=== PATIENT | female | born 1975 | race Caucasian/White ===

== ENCOUNTER 2017-06-19 18:28 | Emergency (ER) | payer OTHER, MEDICAID ==
[2017-06-19] MEDS ORDERED: DEXAMETHASONE SOD PHOS INJ 10 MG/1 ML VIAL IM ONE (18:48)
[2017-06-19] MEDS ORDERED: KETOROLAC TROMETHAMINE INJ/PF 30 MG/1 ML SDV IM ONE (18:48)
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
[2017-06-19 19:51] VITALS: BP 131/82
== END 2017-06-19 19:51 | disposition home or self-care (01) ==
LOC: ER 18:28
DX: S16.1XXA Strain of muscle, fascia and tendon at neck level, initial encounter (principal); S80.02XA Contusion of left knee, initial encounter; M25.562 Pain in left knee; M54.2 Cervicalgia; R51 Headache; R07.9 Chest pain, unspecified; R10.9 Unspecified abdominal pain; M25.551 Pain in right hip; V49.50XA Passenger injured in collision with unspecified motor vehicles in traffic accident, initial encounter; M54.5 Low back pain; G89.29 Other chronic pain; I10 Essential (primary) hypertension
CPT/HCPCS: 99284; 96372; 73562; J1885; J1100

== ENCOUNTER → 2017-10-15 | Outpatient (CLI) | payer MEDICAID ==
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
== END ==
LOC: OD 14:16
PROVIDERS: ATTEND Nurse Practitioner Family
DX: M54.42 Lumbago with sciatica, left side (principal); M25.561 Pain in right knee
CPT/HCPCS: 72110

== ENCOUNTER → 2017-11-12 | Outpatient (CLI) | payer MEDICAID ==
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
== END ==
LOC: RAD 12:52
PROVIDERS: ATTEND Nurse Practitioner Family
DX: M54.42 Lumbago with sciatica, left side (principal)
CPT/HCPCS: 72148

== ENCOUNTER → 2018-04-06 | Outpatient (CLI) | payer MEDICAID ==
--- NOTE | 2018-04-06 14:36 | RADIOLOGY REPORT (SQ) ---
EXAM DESCRIPTION: L SPINE W/FLEX/EXT COMPLETED DATE/TIME: 04/06/2018 2:25 pm REASON FOR STUDY: LUMBAR RADICULOPATHY (M54.16) M54.16 RADICULOPATHY, LUMBAR REGION COMPARISON: 10/15/2017. NUMBER OF VIEWS: Seven views. TECHNIQUE: AP, lateral, obliques, flexion, extension, and sacral radiographic images acquired. LIMITATIONS: None. FINDINGS: MINERALIZATION: Normal. SEGMENTATION: Normal. No transitional anatomy. ALIGNMENT: Normal. FLEXION/EXTENSION: No instability. VERTEBRAE: Maintained height. No fracture or worrisome bone lesion. DISCS: Mild disc space narrowing with small osteophytes. POSTERIOR ELEMENTS: Pedicles and facets are intact. No pars defect or posterior arch defects. HARDWARE: Posterior hardware unchanged, extending inferior from the posterior spinous process of L1. Not attached to the posterior spinous process of L2. PARASPINAL SOFT TISSUES: Normal. PELVIS: Intact as visualized. No fractures or worrisome bone lesions. SI joints intact. OTHER: No other significant finding. IMPRESSION: MILD DEGENERATIVE DISC DISEASE. POSTERIOR HARDWARE UNCHANGED. NO INSTABILITY ON FLEXION/EXTENSION. TECHNICAL DOCUMENTATION: JOB ID: [id number] [employer]- All Rights Reserved Reading location - IP/workstation name: [email or web address]
--- NOTE | 2018-04-06 14:53 | RADIOLOGY REPORT (SQ) ---
EXAM DESCRIPTION: CT LUMBAR SPINE WITHOUT COMPLETED DATE/TIME: 04/06/2018 2:34 pm REASON FOR STUDY: LUMBAR RADICULOPATHY (M54.16) M54.16 RADICULOPATHY, LUMBAR REGION COMPARISON: MR dated 11/12/2017. TECHNIQUE: Axial images acquired through the lumbar spine without intravenous contrast. Images revi ewed with lung, soft tissue and bone windows. Reconstructed coronal and sagittal MPR images reviewe d. All images stored on PACS. All CT scanners at this facility use dose modulation, iterative reconstruction, and/or weight based d osing when appropriate to reduce radiation dose to as low as reasonably achievable (ALARA). [facility]: Dose Right [facility]: CareDose [facility]: Dose Right [facility]: Teradose 4D [facility]: [employer] RADIATION DOSE: CT Rad equipment meets quality standard of care and radiation dose reduction techniq ues were employed. CTDIvol: 31.2 mGy. DLP: 1009 mGy-cm. mGy. LIMITATIONS: None. FINDINGS: SEGMENTATION: Normal. No transitional anatomy. ALIGNMENT: Normal. VERTEBRAL BODIES: No fractures. No dislocation. No acute findings. DISCS: Study limited by lack of intrathecal contrast. L1-L2: Disc space narrowing. Prominent posterior bony spurring on the superior aspect of the L2 vert ebral body. Prominent facet arthropathy on the left. The combination results in severe spinal steno sis. L2-L3: Diffuse posterior annular disc bulge. Mild to moderate spinal stenosis. L3-L4: Mild diffuse posterior disc bulge. No significant protrusions. No significant stenosis. L4-L5: Mild diffuse posterior disc bulge. Mild to moderate facet arthropathy with ligamentum flavum thickening. Mild to moderate spinal stenosis. L5-S1: Mild diffuse posterior disc bulge. Facet arthropathy, left greater than right. PEDICLES, TRANSVERSE PROCESSES: No fractures. No dislocation. No acute findings. FACETS, POSTERIOR ELEMENTS: No fractures. No dislocation. No spinal stenosis. HARDWARE: Posterior hardware attached to the posterior spinous process of L1 and extending inferiorly . VISUALIZED RIBS: No fractures. SOFT TISSUES: No significant or acute finding in adjacent soft tissues. OTHER: No other significant finding. IMPRESSION: HARDWARE DESCRIBED. MULTILEVEL DEGENERATIVE CHANGES. THE MOST NOTICEABLE FINDING IS PROMINENT BONY SPURRING ON THE POSTEROSUPERIOR ASPECT OF THE L 2 VERTEBRAL BODY AND LEFT FACET ARTHR OPATHY RESULTING IN SEVERE SPINAL STENOSIS. TECHNICAL DOCUMENTATION: JOB ID: [id number] Quality ID # [id number]: Final reports with documentation of one or more dose reduction techniques (e.g., Au tomated exposure control, adjustment of the mA and/or kV according to patient size, use of iterative reconstruction technique) 2010 [employer]- All Rights Reserved Reading location - IP/workstation name: [email or web address]
== END ==
LOC: RAD 14:04
PROVIDERS: ATTEND Specialist
DX: M51.16 Intervertebral disc disorders with radiculopathy, lumbar region (principal); M47.896 Other spondylosis, lumbar region
CPT/HCPCS: 72114; 72131